=== PATIENT | female | born 1950 | race Caucasian/White ===

== ENCOUNTER 2024-11-09 10:04 | Outpatient (AMB) | payer MEDICARE, OTHER, SELFPAY ==
--- NOTE | 2024-11-09 10:16 | A.OFFPC_ITS ---
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 Medical Coder Required: No Allergies cephalexin [From Keflex] Allergy (Intermediate, Verified 11/09/24 10:18) Rash erythromycin base Allergy (Intermediate, Verified 11/09/24 10:18) Nausea and Vomiting benita flavor Allergy (Intermediate, Verified 11/09/24 10:18) Swelling Medication List - Last Reconciled 11/09/24 by Jose Salter MD lorazepam mg PO oxycodone mg PO Tobacco use date assessed: 11/09/24 Fall risk assessment: No Falls in past year Last assessed Fall Risk: 11/09/24 Dental Screening Dental Screen Date: 11/09/24 Did you have a dental visit in the last 12 months?: No Did you have a dental problem in the last 6 months where you did not have access to dental care?: No Was dental information given to patient?: Patient has dentist HPI 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 ?? Prior PCP:? Shauna Adler Last office visit/CPE:? > 1 yr Acute issue(s):? Lung CA & followed by Dr Hayes Recent Illness last week and went to Urgent care then [facility] ER ?? PMHx:? Lung CA s/p Radiation & Chemo, Current Port w/ plan for removal November 20. Osteoporosis & Thoracic Compression fractures. Back Pain. Anxiety SurgHx:?LOTTIE, x 2. SocHx:? Quit 3 yrs ago w/ cancer dx. EtOH: None. No drugs HPI Comments History of Present Illness Details Documentation assistance for Jose Salter MD, was provided by Edgardo Mo,? Chief Construction Inspector on 11/09/2024 at 11:00 AM EST. Blevins, Dr. Salter, have read, observed, and verified documentation. ? 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 1. Little interest or pleasure in doing things: not at all 2. Feeling down, depressed, or hopeless: not at all 3. Trouble falling or staying asleep, or sleeping too much: not at all 4. Feeling tired or having little energy: not at all 5. Poor appetite or overeating: nearly every day 6. Feeling bad about yourself - or that you are a failure or have let yourself or your family down: not at all 7. Trouble concentrating on things, such as reading the newspaper or watching television: not at all 8. Moving or speaking so slowly that other people could have noticed. Or the opposite - being so fidgety or restless that you have been moving around a lot more than usual: not at all 9. Thoughts that you would be better off or of hurting yourself in some way: not at all Total score: 3 Depression Screening Interpretation: Negative Depression Screening Done: Yes 25756 - PHQ-9 Billing: Yes Source: Developed by Drs. Hadley Carrera, Jackelyn Clayton, Miguel Coronel and colleagues, with an educational soham from [employer]. Thrive Questionnaire I am a: Patient What is your living situation today?: I have a steady place to live Within the past 12 months, did the food you bought not last and you didn't have the money to get more?: Never true Within the past 12 months, did you worry whether your food would run out before you got money to buy more?: Never true Do you have trouble paying for medicines?: No Do you have trouble getting transportation to medical appointments?: No Do you have trouble paying your heating and electricity bill?: No Do you have trouble taking care of your child, family member or friend?: No Do you have trouble with day-to-day activities such as bathing, preparing meals, shopping, managing finances, etc.?: No Are you currently unemployed and looking for a job?: No Are you interested in more education?: No Please select the resources that you would like help with: None Currently or been in a relationship where the following occur: No concerns reported THRIVE Score: 0 AUDIT C Alcohol Use Questionnaire (AUDIT-C) 1. How often do you have a drink containing alcohol?: Never Total Score: 0 JUAN M-7 AMB Questionnaire JUAN M-7 Date JUAN M - 7 assessed: 11/09/24 Feeling nervous, anxious, or on edge: 0 = Not at all Not being able to stop or control worryin = Not at all Worrying too much about different things: 0 = Not at all Trouble relaxin = Not at all Being so restless that it is hard to sit still: 0 = Not at all Becoming easily annoyed or irritable: 0 = Not at all Feeling afraid as if something awful might happen: 0 = Not at all Total JUAN M-7 score (0-4 normal; 5-9 mild; 10-14 moderate; 15-21 severe): 0 Source: Developed by Drs. Hadley Carrera, Jackelyn Clayton, Miguel Coronel and colleagues, with an educational soham from [employer]. JUAN M-7 Assessment Billing JUAN M-7 Assessment Tool: JUAN M-7 Assessment 27480 Review of Systems Const Denies chills, Reports fatigue, Denies fever(s), Denies headache(s) and Denies weakness ENT Denies dizziness and Denies headache(s) Card Denies chest pain, Denies lightheadedness, Denies dyspnea and Denies other (Palpitations) Resp Denies dyspnea, Denies wheezing and Denies other ( shortness of breath) Musc Denies numbness and Denies tingling Neuro Denies dizziness, Denies headache(s), Denies numbness, Denies tingling, Denies paresthesias and Denies weakness Psych Denies anxiety and Denies depression Endo Reports fatigue Aller/Immun Denies wheezing Physical exam (Primary Care) Vital Signs: Last Vital Signs Temp 98.3 F 11/09/24 10:32 Pulse 66 11/09/24 10:32 Resp 14 11/09/24 10:32 BP 120/80 11/09/24 10:32 Pulse Ox 95 11/09/24 10:32 Oxygen Delivery Method Room Air 11/09/24 10:32 BMI result Body Mass Index 18.8 Tobacco/Smoking Status: Tobacco use Status Tobacco use date assessed 11/09/24 11/09/24 10:23 Patient Tobacco Use Status Former Tobacco user 11/09/24 10:23 e-Cigarette/Vaping Use Never Used 11/09/24 10:23 PHQ-9: PHQ-9 Score PHQ-9: Total score 3 11/09/24 10:36 Depression Screening Interpretation: Negative Currently or been in a relationship where the following occur: No concerns reported Const General: no acute distress and well developed Nutritional Appearance: well nourished Orientation/consciousness: patient oriented x3 HENMT Head: Yes normocephalic and Yes atraumatic Eyes General: appearance normal, both eyes and all related structures Pupils: Equal, round and reactive pupils present EOM: EOMs intact bilaterally Resp Other: Distant breath sounds but otherwise clear Effort & Inspection: normal respiratory effort Auscultation: clear to auscultation bilaterally Cardio Rate: regular rate Rhythm: regular rhythm Heart sounds: S1 normal heart sound present, S2 normal heart sound present, no gallops, no murmurs and no rubs Neuro General: patient oriented x3 and gait normal Cranial nerves: Yes Equal, round and reactive pupils present Psych Affect: normal affect Coding Level of Care Code New Pt Level 3 (36699) Diagnoses History of lung cancer Z85.118 Malaise R53.81 Lung nodules R91.8 Back pain M54.9 History of compression fracture of spine Z87.81 Anxiety F41.9 Laboratory exam ordered as part of routine general medical examination Z00.00 Osteoporosis M81.0 Pre-diabetes R73.03 Additional Codes JUAN M-7 Assessment Billing - JUAN M-7 Assessment Tool: JUAN M-7 Assessment 83105 ([id number]) PHQ-9 - 68646 - PHQ-9 Billing: Yes ([id number]) Assessment & Plan Assessment & Plan (1) History of lung cancer: Code(s): Z85.118 - Personal history of other malignant neoplasm of bronchus and lung Category: Medical Plan: Lung?cancer?and?she?is?s/p?radiation?and?chemotherapy?without?resection. Large?left?perihilar?mass Also?scattered?lung?nodules Followed?by? Requesting?his?most?recent?note Patient?no?longer?smokes?since?her?diagnosis Recent?hospital?visit-see?below. Concern?for?progression?of?disease She?has?an?appointment?with??on?Wednesday (2) Malaise: Code(s): R53.81 - Other malaise Category: Medical Plan: Patient?went[facility]to[facility]the[facility]last?week?with?malaise?and?fatigue?as?well ?as?some?cough?and?shortness?of?breath. There?was?concern?for?PE?and?a?CT?angio?of?the?chest?was?acquired. This?showed?left?perihilar?mass?measuring?5.5?x?4.4 x 3.6 cm mass and?there?is?concern?for?progression?of?disease. Coarse?breath?sounds?bilateral?lungs?with?some?secretions?sounds Concern?for?a?bronchitis?or?mild?COPD?exacerbation- no?definitive?diagnosis?of?COPD?at?this?time Possible?atypical?pneumonia Will?give?her?a?Z-Iván?and?prednisone. (3) Lung nodules: Code(s): R91.8 - Other nonspecific abnormal finding of lung field Category: Medical Plan: As?above (4) Back pain: Code(s): M54.9 - Dorsalgia, unspecified Category: Medical Plan: History?of?osteoporosis?and?compression?fractures?of?thoracic?spine She?is?on?oxycodone She?says?this?manages?her?pain?and?she?uses?as?needed Will?continue?this?prn (5) History of compression fracture of spine: Code(s): Z87.81 - Personal history of (healed) traumatic fracture Category: Medical Plan: As?above (6) Anxiety: Code(s): F41.9 - Anxiety disorder, unspecified Category: Medical Plan: History?of?anxiety She?is?on?lorazepam?and?we?will?continue?this (7) Laboratory exam ordered as part of routine general medical examination: Code(s): Z00.00 - Encounter for general adult medical examination without abnormal findings Category: Medical Plan: Patient?declines?labs?today Reviewed?labs?from?recent?hospitalization (8) Osteoporosis: Code(s): M81.0 - Age-related osteoporosis without current pathological fracture Category: Medical Plan: Will?continue?monitor (9) Pre-diabetes: Code(s): R73.03 - Prediabetes Category: Medical Plan: A1c?5.8%.??Pre?diabetes?range Encouraged?a?diet?lower?in?sugars?and?starches Orders: Orders Complete Blood Count Auto Diff Today Z00.00 - Encounter for general adult medical examination without abnormal findings Lipid Panel Today Z00.00 - Encounter for general adult medical examination without abnormal findings Comprehensive Phelps. Panel Fast Today Z00.00 - Encounter for general adult medical examination without abnormal findings Microalbumin, Random (w Creat) Today I10 - Essential (primary) hypertension UA CC w/rflx Micro + Cult Today Z00.00 - Encounter for general adult medical examination without abnormal findings TSH reflex Free T4 Today Z00.00 - Encounter for general adult medical examination without abnormal findings Medications: New azithromycin (Zithromax Z-Iván) take 500 mg today (day 1), then 250 mg for 4 days (days 2-5) PO 5 days 6 tabs 0RF prednisone 20 mg PO DAILY 4 days 4 tabs 0RF
[2024-11-09 10:32] VITALS: BP 120/80; PULSE 66; RESP 14; TEMP 36.8; O2SAT 95; BMI 18.8
== END 2024-11-09 11:38 | disposition home or self-care (01) ==
LOC: HO.HMCFM 10:05
PROVIDERS: PCP Family Medicine; Visit Provider Family Medicine
DX: Z85.118 Personal history of other malignant neoplasm of bronchus and lung (principal); R53.81 Other malaise; R91.8 Other nonspecific abnormal finding of lung field; M54.9 Dorsalgia, unspecified; Z87.81 Personal history of (healed) traumatic fracture; F41.9 Anxiety disorder, unspecified; Z00.00 Encounter for general adult medical examination without abnormal findings; M81.0 Age-related osteoporosis without current pathological fracture; R73.03 Prediabetes

== ENCOUNTER → 2024-11-09 10:04 | Outpatient (BNVA) | payer MEDICARE, OTHER, SELFPAY | PROVIDERS: PCP Family Medicine; Visit Provider Family Medicine | DX: Z00.00 Encounter for general adult medical examination without abnormal findings (principal); R91.8 Other nonspecific abnormal finding of lung field; R53.81 Other malaise; M54.9 Dorsalgia, unspecified; F41.9 Anxiety disorder, unspecified; M81.0 Age-related osteoporosis without current pathological fracture; R73.03 Prediabetes; Z87.81 Personal history of (healed) traumatic fracture; Z85.118 Personal history of other malignant neoplasm of bronchus and lung | CPT/HCPCS: 96127; 99202 ==